=== PATIENT | female | born 1975 | race Caucasian/White ===

== ENCOUNTER 2023-11-25 21:36 | Emergency (ER) | payer SELFPAY ==
[2023-11-25 22:02] VITALS: BP 157/122
--- NOTE | 2023-11-25 22:03 | EDRN ---
Lydia Nurse (Winnie Quiles) called at 22:05-- will be arriving close to 23:00
[2023-11-25 22:22] VITALS: BMI 22.7
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
--- NOTE | 2023-11-25 23:27 | EDRN ---
Updated ERIK Mendosa rep is in room with pt. DARIELA Zurita going into room to see pt.
[2023-11-25 23:48] LABS: Glucose - Point of Care 112 mg/dl (70-99)
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
[2023-11-26 03:15] VITALS: BP 129/74
--- NOTE | 2023-11-26 03:15 | EDRN ---
DARIELA and this RN discussed prophylactic medications with pt. Pt concerned she will have to pay for a prescription and that every time she goes to an urgent care the antibiotics are very expensive. Explained to pt the antibiotics are one time dose
in the ED. Informed pt she could get something to eat to take the antibiotics however she said she didn't want them because her stomach gets very upset with antibiotics. Pt said she will go to [facility] across the street from her if she
needs to. Pt declined prophylactic medications multiple times and requested a note for work. Pt given discharge instructions and note for work.
== END 2023-11-26 03:30 | disposition home or self-care (01) ==
LOC: EMR 21:36
PROVIDERS: EMERGENCY PHYSICIAN Emergency Medicine
DX: T76.21XA Adult sexual abuse, suspected, initial encounter (principal); X58.XXXA Exposure to other specified factors, initial encounter; E11.9 Type 2 diabetes mellitus without complications; F31.9 Bipolar disorder, unspecified; I10 Essential (primary) hypertension; Z59.00 Homelessness unspecified
CPT/HCPCS: 99282; 82962